=== PATIENT | male | born 1985 | race Caucasian/White ===

== ENCOUNTER 2025-01-20 14:17 | Outpatient (CLI) | payer BC | END 2025-01-20 14:18 | disposition home or self-care (01) | LOC: BICMRI 14:17 | PROVIDERS: ATTEND Physician Assistant | DX: M51.360 Other intervertebral disc degeneration, lumbar region with discogenic back pain only (principal); M47.816 Spondylosis without myelopathy or radiculopathy, lumbar region | CPT/HCPCS: 72148 ==